=== PATIENT | male | born 1965 | race African-American/Black ===

== ENCOUNTER → 2016-06-08 | Outpatient (CLI) | payer OTHER ==
--- NOTE | 2016-06-09 09:12 | DI ---
Indication: ITS.REASON: BACK PAIN PROCEDURE: MRI LUMBAR SPINE W/O CONTRAST: Encounter: Initial Comparison: None Technique: Multiplanar multisequence MR imaging of the lumbar spine was performed without contrast. Findings: Alignment of the lumbar spine is within normal limits. No acute fracture or subluxation. Conus medullaris terminates normally at L1. Paraspinal soft tissues are unremarkable. Segmental analysis: L1-L2: Normal L2-L3: Normal L3-L4: Congenital narrowing due to short pedicles with a superimposed central protrusion causes moderate central canal stenosis. Severe bilateral neural foraminal stenosis with disk material impinging upon the exiting right L3 nerve root and bony impingement upon the left L3 nerve root. L4-L5: Congenital narrowing with a superimposed central protrusion causing severe central canal stenosis. Degenerative facet disease contributing to severe bilateral neural foraminal stenosis and impingement upon both exiting L4 nerve roots. L5-S1: Degenerative facet disease with a small central protrusion. No true central canal stenosis. Thickening of the L5 and S1 nerve roots of uncertain etiology. Severe bilateral neural foraminal stenosis. 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 .
== END ==
LOC: IMA 17:17
PROVIDERS: ATTEND Nurse Practitioner Family
DX: Q76.49 Other congenital malformations of spine, not associated with scoliosis (principal); M47.897 Other spondylosis, lumbosacral region; M48.06 Spinal stenosis, lumbar region; M54.5 Low back pain